=== PATIENT | male | born 1965 | race Two or more races ===

== ENCOUNTER 2025-01-08 11:44 | Inpatient (IN) | payer OTHER ==
[~2025-01-08] VITALS: Ht 170.2 cm; Wt 95.7 kg
--- NOTE | 2025-01-08 12:35 | ECG ---
[facility] Test Date: 2025-01-08 Test Time: 12:31:14 Pat Name: BEAU IRBY Department: ER Room: 0222T Gender: M Regulatory Affairs Specialist: ESSENCE : 1965 Requested By: OLGA PHAN Order Number: [id number] Reading MD: Aman Mills Measurements Intervals [place] Rate: 70 P: 57 NH: 159 QRS: 45 QRSD: 91 T: 59 QT: 387 QTc: 418 Interpretive Statements Sinus rhythm Borderline T wave abnormalities Electronically Signed On 01-09-2025 19:16:38 PDT by Aman Mills Please click the below link to view image of tracing.
[2025-01-08 12:56] VITALS: PULSE 75; RESP 18; O2SAT 97
--- NOTE | 2025-01-08 13:03 | DVH ---
EXAM: XY CHEST PORTABLE HISTORY: dizzy, cp COMPARISON: None TECHNIQUE: Portable AP view of the chest was performed. FINDINGS: No pneumothorax, consolidative infiltrates, or pulmonary edema. The heart is not enlarged. There is moderate thoracic degenerative disc disease. IMPRESSION: No acute intrathoracic process.
[2025-01-08 13:04] LABS: Chloride 105 mmol/L (98-107); Potassium 3.8 mmol/L (3.5-5.1); Sodium 140 mmol/L (136-145)
[2025-01-08 13:05] LABS: Anion Gap 10 (5-15); Carbon Dioxide 25 mmol/L (20-31)
[2025-01-08 13:06] LABS: Basophils # (auto) 0.1 10 ^3/uL (0-0.2); Eosinophils # (auto) 0.5 10 ^3/uL (0-0.8); Eosinophils % (auto) 7.4 % (0.0-7.0); Hemoglobin 16.5 g/dL (12.2-16.2); Lymphocytes # (auto) 2.3 10 ^3/uL (0.4-5.4); Lymphocytes % (auto) 31.9 % (10.0-50.0); Mean Corpuscular Hemoglobin 29.1 pg (28.0-32.0); Mean Corpuscular Hgb Conc. 34.4 g/dL (32.0-36.0); Mean Corpuscular Volume 84.6 fL (80.0-100.0); Monocytes # (auto) 0.6 10 ^3/uL (0-1.3); Monocytes % (auto) 8.1 % (0.0-12.0); Neutrophils # (auto) 3.6 10 ^3/uL (1.6-8.6); Neutrophils % (auto) 51.6 % (37.0-80.0); Nucleated Red Blood Cells % 0.3 %; Platelet Count (auto) 302 10^3/uL (140-450); Red Blood Cells 5.67 10^6/uL (4.0-5.20); Red Cell Distribution Width 13.6 % (11.8-14.3); White Blood Cell 7.1 10^3/uL (4.4-10.8)
[2025-01-08 13:07] LABS: Calcium 10.5 mg/dL (8.7-10.4)
--- NOTE | 2025-01-08 13:09 | DVH ---
EXAM: CT HEAD WITHOUT CONTRAST HISTORY: dizzy COMPARISON: None TECHNIQUE: Axial images of the head were obtained and reformatted in coronal and sagittal planes. All CT scans at this medical facility are performed using dose modulation techniques as appropriate t o a performed exam including the following: Automated exposure control was utilized; adjustment of th e MA and/or KV according to patient size; and use of iterative reconstruction technique. CT Dose: CTDI volume is 52.15 mGy. Dose-length product is 863.9 mGy*cm FINDINGS: There is no evidence of acute intracranial hemorrhage, mass, mass effect midline shift. There is no h ydrocephalus or extra-axial fluid collection. Anthony-white matter differentiation is maintained. The visualized paranasal sinuses and mastoid air cells are clear. The calvarium is intact. IMPRESSION: 1. No acute intracranial process. HS:Y
[2025-01-08 13:10] LABS: BUN/Creatinine Ratio 23.2 (10.0-20.0); Blood Urea Nitrogen 22 mg/dL (9-23); Glucose 100 mg/dL (74-106)
[2025-01-08] MEDS: SODIUM CHLORIDE 0.9% 1,000 ML IV ONE (13:16)
[2025-01-08 14:51] LABS: Urine Bacteria None Seen /hpf (None Seen)
[2025-01-08 15:04] LABS: Urine Blood Negative /uL (Negative); Urine Clarity Clear (Clear); Urine Color Light-Yellow (Yellow); Urine Protein, UAD Negative (Negative); Urine Specific Gravity 1.022 (1.001-1.035); Urine Squamous Epithelial Cell None Seen /hpf (<5); Urine Urobilinogen Normal (Negative); Urine WBC 1 /HPF (0-5)
--- NOTE | 2025-01-08 15:12 | ED.PDOC ---
History of Present Illness HPI Comments 59Y M with PMHx HTN and HLD presents to ED for chief complaint dizziness [id number] with intermittent chest pain. Pt describes the dizziness as being lightheaded. Dizziness is worsened when concentrating, speaking, and driving. Pt states he feels at times he might pass out. Episodes are sometimes accompanied by chest pain. Per pt, had similar episode years ago and was told he had HTN and HLD. Pt attempted to fix diet and stop drinking but has not felt relief from the symptoms. Next PCP appt is on 02/08/2025. No other symptoms reported. Chief Complaint: Dizziness Time Seen by MD: 14:30 Reviewed Notes: Nurses Notes, Medications, Allergies Allergies: Coded Allergies: NO KNOWN ALLERGIES (Unverified , 01/08/25) Information Source: Patient Mode of Arrival: Ambulatory Severity: Moderate Timing: Months Duration: Intermittent Prehospital treatment: None Past Medical History PAST MEDICAL HISTORY: High Lipids, HTN Surgical History: Denies all surgeries Family History Family History: Unknown Social History Smoker: Non-Smoker Alcohol: Denies ETOH Use Drugs: Denies Drug Use Lives In: Home Constitutional: denies: chills, diaphoresis, fatigue, fever, malaise, sweats, weakness, others EENTM: denies: blurred vision, double vision, ear bleeding, ear discharge, ear drainage, ear pain, ear ringing, eye pain, eye redness, hearing loss, mouth pain, mouth swelling, nasal discharge, nose bleeding, nose congestion, nose pain, photophobia, tearing, throat pain, throat swelling, voice changes, others Respiratory: denies: cough, hemoptysis, orthopnea, SOB at rest, shortness of breath, SOB with excertion, stridor, wheezing, others Cardiovascular: reports: chest pain; denies: dizzy spells, diaphoresis, Dyspnea on exertion, edema, irregular heart beat, left arm pain, lightheadedness, palpitations, PND, syncope, others Gastrointestinal: denies: abdomen distended, abdominal pain, blood streaked bowels, constipated, diarrhea, dysphagia, difficulty swallowing, hematemesis, melena, nausea, poor appetite, poor fluid intake, rectal bleeding, rectal pain, vomiting, others Neurological: reports: dizziness; denies: fainting, headache, left sided numbness, left sided weakness, numbness, paresthesia, pre-existing deficit, right sided numbness, right sided weakness, seizure, speech problems, tingling, tremors, weakness, others Musculoskeletal: denies: back pain, gout, joint pain, joint swelling, muscle pain, muscle stiffness, neck pain, others Integumetry: denies: bruises, change in color, change in hair/nails, dryness, laceration, lesions, lumps, rash, wounds, others Allergic/Immunocompromised: denies: Difficulty Healing, Frequent Infections, Hives, Itching, others Hematologic/Lymphatic: denies: anemia, blood clots, easy bleeding, easy bruising, swollen glands, others Endocrine: denies: excessive hunger, excessive sweating, excessive thirst, excessive urination, flushing, intolerance to cold, intolerance to heat, unexplained weight gain, unexplained weight loss, others Psychiatric: denies: anxiety, bipolar disorder, depression, hopeless, panic disorder, schizophrenia, sleepless, suicidal, others All Other Systems: Reviewed and Negative Physical Exam General Appearance: No Apparent Distress, Obese HEENT: PERRL/EOMI Neck: Full Range of Motion, Normal Inspection Respiratory: Lungs Clear, No Accessory Muscle Use, No Respiratory Distress, Normal Breath Sounds Cardiovascular: No Edema, No JVD, Regular Rate/Rhythm Breast Exam: Deferred Gastrointestinal: Non Tender, Soft Genitalia: Deferred Pelvic: Deferred Rectal: Deferred Extremities: Normal inspection, Normal range of motion, Non-tender, No pedal edema Neurologic: Alert (Oriented x4), Normal Affect, Normal Mood, Other (Ambulatory. No gross focal deficit.) Cerebellar Function: NOT DONE Reflexes: NOT DONE Skin: Dry, Normal Color, Warm Lymphatic: NOT DONE Was a procedure done? Was a procedure done?: No EKG EKG : Comments Sinus rhythm, rate 70, normal intervals, normal axis, normal QRS, nonspecific T changes. Differential Dx Considerations may include: vasovagal reaction, arrhythmia, ACS, LA, TIA, carotid insufficiency, intracranial mass lesion, hypovolemia/orthostasis, among others X-Ray, Labs, Meds, VS Vital Signs Date Time Temp Pulse Resp B/P (MAP) Pulse Ox O2 Delivery O2 Flow Rate FiO2 01/08/25 13:17 98.1 68 19 121/84 (96) 95 98.1 01/08/25 12:56 97.8 75 18 141/91 (108) 97 97.8 01/08/25 12:56 75 18 97 Room Air* 0 21 01/08/25 12:31 70 01/08/25 12:25 98.2 71 16 143/93 (110) 99 98.2 Lab Test 01/08/25 13:06 01/08/25 12:41 01/08/25 12:26 Range/Units Urine Color Light-yellow Yellow Urine Clarity Clear Clear Urine pH 6.0 5.0-9.0 Urine Specific [place] 1.022 1.001-1.035 Urine Protein Negative Negative Urine Ketones Negative Negative Urine Blood Negative Negative /uL Urine Nitrite Negative Negative Urine Bilirubin Negative Negative Urine Urobilinogen Normal Negative mg/dL Urine Leukocyte Esterase Negative Negative /uL Urine RBC 1 0 - 4 /hpf Urine Microscopic WBC 1 0-5 /HPF Urine Squamous Epithelial Cells None seen <5 /hpf Urine Bacteria None seen None Seen /hpf Urine Glucose Normal Normal mg/dL White Blood Count 7.1 4.4-10.8 10^3/uL Red Blood Count 5.67 H 4.0-5.20 10^6/uL Hemoglobin 16.5 H 12.2-16.2 g/dL Hematocrit 48.0 H 36.0-46.0 % Mean Corpuscular Volume 84.6 80.0-100.0 fL Mean Corpuscular Hemoglobin 29.1 28.0-32.0 pg Mean Corpuscular Hemoglobin Concent 34.4 32.0-36.0 g/dL Red Cell Distribution Width 13.6 11.8-14.3 % Platelet Count 302 140-450 10^3/uL Mean Platelet Volume 8.6 6.9-10.8 fL Neutrophils (%) (Auto) 51.6 37.0-80.0 % Lymphocytes (%) (Auto) 31.9 10.0-50.0 % Monocytes (%) (Auto) 8.1 0.0-12.0 % Eosinophils (%) (Auto) 7.4 H 0.0-7.0 % Basophils (%) (Auto) 1.0 0.0-2.0 % Neutrophils # (Auto) 3.6 1.6-8.6 10 ^3/uL Lymphocytes # (Auto) 2.3 0.4-5.4 10 ^3/uL Monocytes # (Auto) 0.6 0-1.3 10 ^3/uL Eosinophils # (Auto) 0.5 0-0.8 10 ^3/uL Basophils # (Auto) 0.1 0-0.2 10 ^3/uL Nucleated Red Blood Cells 0.3 % Sodium Level 140 136-145 mmol/L Potassium Level 3.8 3.5-5.1 mmol/L Chloride Level 105 98-107 mmol/L Carbon Dioxide Level 25 20-31 mmol/L Anion Gap 10 5-15 Blood Urea Nitrogen 22 9-23 mg/dL Creatinine 0.95 0.550-1.02 mg/dL Glomerular Filtration Rate Calc 69 >90 mL/min BUN/Creatinine Ratio 23.2 H 10.0-20.0 Serum Glucose 100 74-106 mg/dL Calcium Level 10.5 H 8.7-10.4 mg/dL Troponin I High Sensitivity 20 </=34 ng/L B-Type Natriuretic Peptide 11.76 0-100 pg/mL POC Glucose 107 H 70-106 mg/dl Current Medications Medications (Trade) Dose Ordered Sig/Nahed Route Start Time Stop Time Status Last Admin Sodium Chloride 1,000 ml @ 1,000 mls/hr Q1H ONCE IV 01/08/25 13:15 01/08/25 14:14 DC 01/08/25 13:16 PROCEDURE(s): CXRP - CHEST PORTABLE REASON: dizzy, cp ORDER NUMBER(s): [id number], ACCESSION NUMBER(s): [id number] EXAM: XY CHEST PORTABLE HISTORY: dizzy, cp COMPARISON: None TECHNIQUE: Portable AP view of the chest was performed. FINDINGS: No pneumothorax, consolidative infiltrates, or pulmonary edema. The heart is not enlarged. There is moderate thoracic degenerative disc disease. IMPRESSION: No acute intrathoracic process. EDURE(s): HWOCT - HEAD WITHOUT CONTRAST REASON: dizzy ORDER NUMBER(s): [id number], ACCESSION NUMBER(s): [id number] EXAM: CT HEAD WITHOUT CONTRAST HISTORY: dizzy COMPARISON: None TECHNIQUE: Axial images of the head were obtained and reformatted in coronal and sagittal planes. All CT scans at this medical facility are performed using dose modulation techniques as appropriate to a performed exam including the following: Automated exposure control was utilized; adjustment of the MA and/or KV according to patient size; and use of iterative reconstruction technique. CT Dose: CTDI volume is 52.15 mGy. Dose-length product is 863.9 mGy*cm FINDINGS: There is no evidence of acute intracranial hemorrhage, mass, mass effect midline shift. There is no hydrocephalus or extra-axial fluid collection. Anthony-white matter differentiation is maintained. The visualized paranasal sinuses and mastoid air cells are clear. The calvarium is intact. IMPRESSION: 1. No acute intracranial process. HS:Y X-Ray, Labs, Meds, VS Comment 59-year-old male with a history of hypertension and hyperlipidemia presenting with episodes of lightheadedness and near syncope associated with chest pain Vitals remarkable for BP 143/93 Exam unremarkable Rhythm strip independently interpreted by me: Sinus rhythm, rate 71, no ectopy. CT head unremarkable Chest x-ray unremarkable CBC, metabolic panel, UA, BNP and 2 serial troponins unremarkable for any abnormality of acute significance. Patient treated with the following in the ED: 1 L 0.9 normal saline IV bolus On re-evaluation, patient states he is still having symptoms lightheadedness, but no chest pain. Plan is to admit the patient for Cardiology and Neurology evaluation. Time of 1ST Reevaluation: 15:00 Reevaluation 1ST: Unchanged Time of 2ND Reevaluation: 15:59 Reevaluation 2ND: Unchanged Patient Education/Counseling: Diagnosis, Treatment Family Education/Counseling: No Family Present Departure 1 Departure Time of Disposition: 15:59 Impression: Primary Impression: Pre-syncope Additional Impression: Chest pain with high risk for cardiac etiology Disposition: 09 ADMITTED INPATIENT Admit to: [facility] Condition: Guarded Critical Care Note Critical Care Time?: No Stability Stability form required: No Heart Score Heart Score: Heart Score Response (Comments) Value History Slightly Suspicious 0 EKG Repolarization Disturb 1 Age 45-64 1 Risk Factors 1 or 2 risk factors 1 Troponin Normal limit 0 Total 3 I personally scribed for DEBRA MERCADO MD ([email or web address]) on 01/08/25 at 15:12. Electronically submitted by Alice Cook ([email or web address]). I personally scribed for DEBRA MERCADO MD ([email or web address]) on 01/08/25 at 16:34. Electronically submitted by Alice Cook ([facility]). DEBRA MERCADO MD Jan 08, 2025 15:12
[2025-01-08 19:58] VITALS: PULSE 65; RESP 14; O2SAT 94
[2025-01-08] MEDS ORDERED: hydrALAZINE HCL 20 MG/ML VL IV PRN (20:00)
[2025-01-08] MEDS ORDERED: ONDANSETRON HCL 4 MG/2 ML VIAL IV PRN ×2 (20:00→20:30)
[2025-01-08] MEDS ORDERED: ACETAMINOPHEN 325 MG TAB PO PRN ×2 (20:00→20:30)
[2025-01-08] MEDS ORDERED: DOCUSATE SOD 100 MG CAP PO PRN ×2 (20:00→20:30)
[2025-01-08] MEDS ORDERED: HYDROcodone-ACET 5/325MG TAB PO PRN ×2 (20:00→20:30)
[2025-01-08] MEDS ORDERED: NITROGLYCERIN 0.4 MG SL TAB SL PRN (20:30)
[2025-01-08] MEDS ORDERED: MORPHINE SULFATE INJ 2 MG/ml SYRG IV PRN (20:30)
[2025-01-08] MEDS ORDERED: HYDROmorphone HCL 2 MG/ML VL/or syr IV PRN (20:30)
--- NOTE | 2025-01-08 21:06 | DVHHP2 ---
Admitting Diagnosis: Dizziness History of Present Illness 59Y M with PMHx HTN and HLD presents to ED for chief complaint dizziness [id number] with intermittent chest pain. Pt describes the dizziness as being lightheaded. Dizziness is worsened when concentrating, speaking, and driving. Pt states he feels at times he might pass out. Episodes are sometimes accompanied by chest pain. Per pt, had similar episode years ago and was told he had HTN and HLD. Pt attempted to fix diet and stop drinking but has not felt relief from the symptoms. Next PCP appt is on 02/08/2025. No other symptoms reported. PAST MEDICAL HISTORY: High Lipids, HTN Surgical History: Denies all surgeries Family History Family History: Unknown Social History Smoker: Non-Smoker Alcohol: Denies ETOH Use Drugs: Denies Drug Use Lives In: Home Allergies: Coded Allergies: NO KNOWN ALLERGIES (Unverified , 01/08/25) Current Medications Current Medications Medications (Trade) Dose Ordered Sig/Nahed Route PRN Reason Start Time Stop Time Status Last Admin Sodium Chloride (Saline Lock Ns) 10 ml Q8HR IV 01/08/25 22:00 UNV Acetaminophen/ Hydrocodone Bitart ([place] 5/325MG Tab) 1 tab Q4HP PRN PO MODERATE PAIN (4-6 PAIN SCALE) 01/08/25 20:00 UNV Ondansetron HCl (Zofran) 4 mg Q4HP PRN IV NAUSEA / VOMITING 01/08/25 20:00 UNV Docusate Sodium (Colace Capsule) 100 mg BIDPRN PRN PO FOR CONSTIPATION 01/08/25 20:00 UNV Acetaminophen (Tylenol Tablet) 650 mg Q6HP PRN PO PAIN SCALE 1-3 OR TEMP>100.4 01/08/25 20:00 UNV Hydralazine HCl (Apresoline Injection) 10 mg Q6HP PRN IV SBP>150 01/08/25 20:00 UNV Gemfibrozil (Lopid Tablet) 600 mg DAILY PO 01/09/25 10:00 UNV Sodium Chloride (Saline Lock Ns) 10 ml Q8HR IV 01/08/25 22:00 UNV Docusate Sodium (Colace Capsule) 100 mg BIDPRN PRN PO FOR CONSTIPATION 01/08/25 20:30 UNV Acetaminophen (Tylenol Tablet) 650 mg Q6HP PRN PO PAIN SCALE 1-3 OR TEMP>100.4 01/08/25 20:30 UNV Acetaminophen/ Hydrocodone Bitart ([place] 5/325MG Tab) 1 tab Q4HP PRN PO MODERATE PAIN (4-6 PAIN SCALE) 01/08/25 20:30 UNV Hydromorphone HCl (Dilaudid Injection) 0.5 mg Q4HP PRN IV SEVERE PAIN (7-10 PAIN SCALE) 01/08/25 20:30 UNV Ondansetron HCl (Zofran) 4 mg Q4HP PRN IV NAUSEA / VOMITING 01/08/25 20:30 UNV Enoxaparin Sodium (Lovenox) 40 mg DAILY SC 01/09/25 10:00 UNV Nitroglycerin (Ntrostat Sublingual) 0.4 mg Q5MINP PRN SL FOR CHEST PAIN 01/08/25 20:30 UNV Morphine Sulfate 2 mg Q30M PRN IV FOR CHEST PAIN 01/08/25 20:30 UNV Vital Signs Vital Signs Date Time Temp Pulse Resp B/P (MAP) Pulse Ox O2 Delivery O2 Flow Rate FiO2 01/08/25 19:58 65 14 94 Room Air* 0 21 01/08/25 19:33 98.6 147/96 (113) 98.6 Physical Exam 69 years old male, well nourished well developed. Mild distress HEENT-atraumatic normocephalic Heart-regular rate and rhythm Lungs clear to auscultate bilaterally Abdomen soft nontender nondistended Musculoskeletal-no edema cyanosis Neuro-AO x3, no focal deficits Results Labs Test 01/08/25 13:06 01/08/25 12:41 01/08/25 12:26 Range/Units Urine Color Light-yellow Yellow Urine Clarity Clear Clear Urine pH 6.0 5.0-9.0 Urine Specific [place] 1.022 1.001-1.035 Urine Protein Negative Negative Urine Ketones Negative Negative Urine Blood Negative Negative /uL Urine Nitrite Negative Negative Urine Bilirubin Negative Negative Urine Urobilinogen Normal Negative mg/dL Urine Leukocyte Esterase Negative Negative /uL Urine RBC 1 0 - 4 /hpf Urine Microscopic WBC 1 0-5 /HPF Urine Squamous Epithelial Cells None seen <5 /hpf Urine Bacteria None seen None Seen /hpf Urine Glucose Normal Normal mg/dL White Blood Count 7.1 4.4-10.8 10^3/uL Red Blood Count 5.67 H 4.0-5.20 10^6/uL Hemoglobin 16.5 H 12.2-16.2 g/dL Hematocrit 48.0 H 36.0-46.0 % Mean Corpuscular Volume 84.6 80.0-100.0 fL Mean Corpuscular Hemoglobin 29.1 28.0-32.0 pg Mean Corpuscular Hemoglobin Concent 34.4 32.0-36.0 g/dL Red Cell Distribution Width 13.6 11.8-14.3 % Platelet Count 302 140-450 10^3/uL Mean Platelet Volume 8.6 6.9-10.8 fL Neutrophils (%) (Auto) 51.6 37.0-80.0 % Lymphocytes (%) (Auto) 31.9 10.0-50.0 % Monocytes (%) (Auto) 8.1 0.0-12.0 % Eosinophils (%) (Auto) 7.4 H 0.0-7.0 % Basophils (%) (Auto) 1.0 0.0-2.0 % Neutrophils # (Auto) 3.6 1.6-8.6 10 ^3/uL Lymphocytes # (Auto) 2.3 0.4-5.4 10 ^3/uL Monocytes # (Auto) 0.6 0-1.3 10 ^3/uL Eosinophils # (Auto) 0.5 0-0.8 10 ^3/uL Basophils # (Auto) 0.1 0-0.2 10 ^3/uL Nucleated Red Blood Cells 0.3 % Sodium Level 140 136-145 mmol/L Potassium Level 3.8 3.5-5.1 mmol/L Chloride Level 105 98-107 mmol/L Carbon Dioxide Level 25 20-31 mmol/L Anion Gap 10 5-15 Blood Urea Nitrogen 22 9-23 mg/dL Creatinine 0.95 0.550-1.02 mg/dL Glomerular Filtration Rate Calc 69 >90 mL/min BUN/Creatinine Ratio 23.2 H 10.0-20.0 Serum Glucose 100 74-106 mg/dL Calcium Level 10.5 H 8.7-10.4 mg/dL Troponin I High Sensitivity 20 </=34 ng/L B-Type Natriuretic Peptide 11.76 0-100 pg/mL POC Glucose 107 H 70-106 mg/dl Primary Diagnosis presyncope hypertensive urgency Plan resume lisinopril 20mg daily start amlodipine 2.5mg hydralazine 10mg ivp prb SBP > 165 Check echo for structure heart disease IVF monitor chest pain full code cardiac diet lovenox pepcid for gi pxx Plan discussed with: Patient Problems List: (1) Chest pain with high risk for cardiac etiology Status: Acute (2) Pre-syncope Status: Acute Date of Service: Jan 08, 2025 Billing Provider: NIESHA STEIN MD Common Visit Codes: [id number] INP/OBS CARE (MOD) NIESHA STEIN MD Jan 08, 2025 21:06
[2025-01-08 21:07] VITALS: BP 146/90; PULSE 68; RESP 18; TEMP 97.5; O2SAT 96
[2025-01-08] MEDS ORDERED: SODIUM CHLOR 0.9% PF (SALINE LOCK) 10ML VIAL/SYR IV SCH (22:00)
[2025-01-08] MEDS: SODIUM CHLOR 0.9% PF (SALINE LOCK) 10ML VIAL/SYR IV SCH (22:00)
[2025-01-08 22:05] VITALS: BP 126/70; PULSE 60; RESP 15; TEMP 98; O2SAT 96
[2025-01-08] MEDS ORDERED: GEMF-66 PO (22:33)
[2025-01-08] MEDS ORDERED: POTA-36 PO (22:33)
[2025-01-08] MEDS ORDERED: LISI20TA60 PO (22:33)
[2025-01-09] VITALS (10 sets, daily range): BP systolic 110–144; BP diastolic 71–93; PULSE 57–71; RESP 15–18; TEMP 97.5–98.4; O2SAT 95–100
[2025-01-09 07:04] LABS: Basophils # (auto) 0.1 10 ^3/uL (0-0.2); Basophils % (auto) 0.9 % (0.0-2.0); Eosinophils # (auto) 0.7 10 ^3/uL (0-0.8); Eosinophils % (auto) 8.9 % (0.0-7.0); Hematocrit 44.2 % (41.0-53.0); Hemoglobin 15.4 g/dL (13.5-17.5); Lymphocytes # (auto) 2.6 10 ^3/uL (0.4-5.4); Lymphocytes % (auto) 33.9 % (10.0-50.0); Mean Corpuscular Hemoglobin 29.4 pg (28.0-32.0); Mean Corpuscular Hgb Conc. 34.9 g/dL (32.0-36.0); Mean Corpuscular Volume 84.2 fL (80.0-100.0); Monocytes # (auto) 0.5 10 ^3/uL (0-1.3); Monocytes % (auto) 6.9 % (0.0-12.0); Neutrophils # (auto) 3.8 10 ^3/uL (1.6-8.6); Neutrophils % (auto) 49.4 % (37.0-80.0); Nucleated Red Blood Cells % 0.1 %; Platelet Count (auto) 274 10^3/uL (140-450); Red Blood Cells 5.25 10^6/uL (4.5-5.90); Red Cell Distribution Width 13.8 % (11.8-14.3); White Blood Cell 7.6 10^3/uL (4.4-10.8)
[2025-01-09 07:40] LABS: Alanine Aminotransferase 24 U/L (7-40); Alkaline Phosphatase 79 U/L (46-116); Anion Gap 9 (5-15); BUN/Creatinine Ratio 15.6 (10.0-20.0); Blood Urea Nitrogen 15 mg/dL (9-23); Carbon Dioxide 26 mmol/L (20-31); Chloride 103 mmol/L (98-107); Potassium 3.8 mmol/L (3.5-5.1); Sodium 138 mmol/L (136-145); Total Protein 7.9 g/dL (5.7-8.2)
[2025-01-09 07:54] LABS: Aspartate Aminotransferase 12 U/L (13-40); Glucose 110 mg/dL (74-106)
[2025-01-09 07:55] LABS: Albumin 5.1 g/dL (3.2-4.8); Bilirubin, Total 1.3 mg/dL (0.2-1.0)
[2025-01-09] MEDS: GEMFIBROZIL 600 MG TAB PO SCH (09:01)
[2025-01-09] MEDS: FAMOTIDINE 20 MG TAB PO SCH (09:01)
[2025-01-09] MEDS: LISINOPRIL 20 MG TAB PO SCH (09:02)
[2025-01-09] MEDS: ENOXAPARIN SOD 40 MG/0.4 ML SYRINGE SC SCH (09:04)
--- NOTE | 2025-01-09 13:01 | DVHPN2 ---
Reviewed: Care Plan, H&P, Labs, Medications, Previous Orders, Radiology Changes from previous H/P or p: No Changes Objective Vitals Vital Signs Date Time Temp Pulse Resp B/P (MAP) Pulse Ox O2 Delivery O2 Flow Rate FiO2 01/09/25 09:02 144/79 01/09/25 09:00 97.6 58 16 97 97.6 01/08/25 22:05 Room Air* 0 21 Intake/Output Intake and Output 01/09/25 07:00 Intake Total 1600 ml Balance 1600 ml Intake Oral 600 ml IV Total 1000 ml # Voids 2 Medications Current Medications Medications Dose Ordered Sig/Nahed Route Start Time Stop Time Status Last Admin Dose Admin Hydralazine HCl 10 mg Q6HP PRN IV 01/08/25 20:00 Gemfibrozil 600 mg DAILY PO 01/09/25 10:00 01/09/25 09:01 600 MG Sodium Chloride 10 ml Q8HR IV 01/08/25 22:00 01/09/25 06:00 10 ML Docusate Sodium 100 mg BIDPRN PRN PO 01/08/25 20:30 Acetaminophen 650 mg Q6HP PRN PO 01/08/25 20:30 Acetaminophen/ Hydrocodone Bitart 1 tab Q4HP PRN PO 01/08/25 20:30 Hydromorphone HCl 0.5 mg Q4HP PRN IV 01/08/25 20:30 Ondansetron HCl 4 mg Q4HP PRN IV 01/08/25 20:30 Enoxaparin Sodium 40 mg DAILY SC 01/09/25 10:00 01/09/25 09:04 40 MG Nitroglycerin 0.4 mg Q5MINP PRN SL 01/08/25 20:30 Morphine Sulfate 2 mg Q30M PRN IV 01/08/25 20:30 Lisinopril 20 mg DAILY PO 01/09/25 10:00 01/09/25 09:02 20 MG Famotidine 20 mg DAILY PO 01/09/25 10:00 01/09/25 09:01 20 MG Laboratory Results Laboratory Tests 01/09/25 06:28 Chemistry Test 01/09/25 06:28 Albumin 5.1 g/dL (3.2-4.8) H Calcium Level 10.0 mg/dL (8.7-10.4) Total Protein 7.9 g/dL (5.7-8.2) LFT Test 01/09/25 06:28 Alanine Aminotransferase (ALT) 24 U/L (7-40) Alkaline Phosphatase 79 U/L (46-116) Aspartate Amino Transferase (AST) 12 U/L (13-40) L Total Bilirubin 1.3 mg/dL (0.2-1.0) H Urinalysis Test 01/08/25 13:06 Urine Color Light-yellow (Yellow) Urine Clarity Clear (Clear) Urine pH 6.0 (5.0-9.0) Urine Specific [place] 1.022 (1.001-1.035) Urine Protein Negative (Negative) Urine Ketones Negative (Negative) Urine Blood Negative /uL (Negative) Urine Nitrite Negative (Negative) Urine Bilirubin Negative (Negative) Urine Urobilinogen Normal mg/dL (Negative) Urine Leukocyte Esterase Negative /uL (Negative) Urine RBC 1 /hpf (0 - 4) Urine Microscopic WBC 1 /HPF (0-5) Urine Squamous Epithelial Cells None seen /hpf (<5) Urine Bacteria None seen /hpf (None Seen) Urine Glucose Normal mg/dL (Normal) Labs and/or images reviewed: Labs reviewed by me, Image(s) reviewed by me Assessment/Plan Assessment/Plan Dizziness and chest pain one month: CT head negative carotid ultrasound pending echocardiogram result pending, cardiology consult for Dr. Junior Cook Neurology consult for Dr. Bull History of heavy alcohol use quit three weeks ago Hypotension Hypercholesterolemia Time spent 35 minutes Will check urine drug screen Plan discussed with: Patient My Orders Orders - KARLY DUTTA MD Procedure Category Date Status Time Carotid Duplx W Color US 01/09/25 Logged DOP 12:54 * Cardiology Consult CONS 01/09/25 Verified 12:54 Date of Service: Jan 09, 2025 Billing Provider: KARLY DUTTA MD Common Visit Codes: [id number] INP/OBS CARE(HIGH) KARLY DUTTA MD Jan 09, 2025 13:01
--- NOTE | 2025-01-09 13:41 | DVH ---
CAROTID DOPPLER ULTRASOUND HISTORY: Dizziness COMPARISON: None TECHNIQUE: Real time koch scale, color Doppler, and spectral duplex images are obtained through the c arotid and vertebral arteries. Findings: Peak systolic velocity right internal carotid artery is 66 cm/s and right common carotid artery is 61 cm/s. Ratio is 1.1. Antegrade flow noted in right vertebral artery. No ssignificant atherosclerotic plaque noted within the right carotid arterial system. Peak systolic velocity left internal carotid artery is 96 cm/s and left common carotid artery is 71 c m/s. Ratio is 1.3. Antegrade flow noted in left vertebral artery. No significant atherosclerotic plaq ue noted within the left carotid arterial system. Per the roll on man, the distal ICA is "kinked." Impression: 1. No evidence of hemodynamically significant stenosis within the bilateral carotid arterial systems. 2. Antegrade flow within bilateral vertebral arteries.
[2025-01-09 13:57] LABS: LDL Cholesterol 152 mg/dL (< 100); Triglycerides 181 mg/dL (< 150)
[2025-01-09 14:01] LABS: Cholesterol 207 mg/dL (< 200); HDL Cholesterol 32 mg/dL (40-59)
--- NOTE | 2025-01-09 15:24 | DVHINCON2 ---
Date of service: Jan 09, [address] Kay Reason for Consultation Dizziness one month History of Present Illness Mr. Noyola is a 49 years old not sure left-handed gentleman with a history of hypertension, dyslipidemia, obesity, he came to the [facility] on 01/08/2025 with a chief complaint of dizziness. At this time, he is alert and fully oriented, he provided the following history For about one month, the patient was has constant dizziness/lightheadedness/slight imbalance, along with mild chest pain when he was sitting, standing, walking, and the only time he was symptom-free is bad resting, there was associated blurry vision, but no nausea, vomiting, increased sweating. He has not had passing out He was chronic loud snoring, about four nights weekly, recently he was awakened by his snoring, and he was had waking up a few times choking/gasping. His sleep is not always refreshing, and he sometimes has fatigue and sleepiness during the daytime In the evening, he has a discomfort all over his body with the urge to move, and he keeps moving in the bed, a result he can not fall asleep easily. He claimes he is asymptomatic during the daytime but he was reports difficulty with long- distance travel. He denies a history of anemia or iron deficiency He reports he is a person on the age all the time, easily distressed out and he worries excessively, he sometimes feels muscle tightening up in the shoulders, neck and face, he thinks anxiety runs in his family Urinalysis, 01/08/2025: Unremarkable CBC, 01/09/2025: Unremarkable TBI/AST/ALT/AP, 01/09/2025 1.3//24/79 TG/HDL/LDL/HDL, 01/09/2025: 181/207/152/32 TSH, 01/10/2020 5:2.44 Carotid Doppler, 01/09/2025: 1. No evidence of hemodynamically significant stenosis within the bilateral carotid arterial systems. 2. Antegrade flow within bilateral vertebral arteries CT head, 01/08/2025: No acute intracranial process. Past Medical History Hypertension, dyslipidemia, obesity Past Surgical History None Family History: Patient reports no known family medical history. Family History Hypertension, anxiety Social History He has not history of tobacco smoker, he denies a history of alcohol or substance abuse He maintains and cleans swimming pool Allergies: Coded Allergies: NO KNOWN ALLERGIES (Unverified , 01/08/25) Home Meds Reported Medications Lisinopril & Hydrochlorothiazi (Zestoretic) 1 Tab Tab, 1 TAB PO DAILY, #30 TAB 5 Refills 01/08/25 Potassium Chloride (POTASSIUM CHLORIDE CR) 10 Meq Tb, 1 TAB PO DAILY, #30 TAB 5 Refills 01/08/25 Gemfibrozil (Gemfibrozil) 600 Mg Tab, 1 TAB PO BID 01/08/25 Current Medications Current Medications Medications (Trade) Dose Ordered Sig/Nahed Route PRN Reason Start Time Stop Time Status Last Admin Sodium Chloride (Saline Lock Ns) 10 ml Q8HR IV 01/08/25 22:00 01/08/25 21:44 DC Acetaminophen/ Hydrocodone Bitart ([place] 5/325MG Tab) 1 tab Q4HP PRN PO MODERATE PAIN (4-6 PAIN SCALE) 01/08/25 20:00 01/08/25 21:44 DC Ondansetron HCl (Zofran) 4 mg Q4HP PRN IV NAUSEA / VOMITING 01/08/25 20:00 01/08/25 21:44 DC Docusate Sodium (Colace Capsule) 100 mg BIDPRN PRN PO FOR CONSTIPATION 01/08/25 20:00 01/08/25 21:44 DC Acetaminophen (Tylenol Tablet) 650 mg Q6HP PRN PO PAIN SCALE 1-3 OR TEMP>100.4 01/08/25 20:00 01/08/25 21:44 DC Hydralazine HCl (Apresoline Injection) 10 mg Q6HP PRN IV SBP>150 01/08/25 20:00 Gemfibrozil (Lopid Tablet) 600 mg DAILY PO 01/09/25 10:00 01/09/25 09:01 Sodium Chloride (Saline Lock Ns) 10 ml Q8HR IV 01/08/25 22:00 01/09/25 06:00 Docusate Sodium (Colace Capsule) 100 mg BIDPRN PRN PO FOR CONSTIPATION 01/08/25 20:30 Acetaminophen (Tylenol Tablet) 650 mg Q6HP PRN PO PAIN SCALE 1-3 OR TEMP>100.4 01/08/25 20:30 Acetaminophen/ Hydrocodone Bitart ([place] 5/325MG Tab) 1 tab Q4HP PRN PO MODERATE PAIN (4-6 PAIN SCALE) 01/08/25 20:30 Hydromorphone HCl (Dilaudid Injection) 0.5 mg Q4HP PRN IV SEVERE PAIN (7-10 PAIN SCALE) 01/08/25 20:30 Ondansetron HCl (Zofran) 4 mg Q4HP PRN IV NAUSEA / VOMITING 01/08/25 20:30 Enoxaparin Sodium (Lovenox) 40 mg DAILY SC 01/09/25 10:00 01/09/25 09:04 Nitroglycerin (Ntrostat Sublingual) 0.4 mg Q5MINP PRN SL FOR CHEST PAIN 01/08/25 20:30 Morphine Sulfate 2 mg Q30M PRN IV FOR CHEST PAIN 01/08/25 20:30 Lisinopril (Zestril Tablet) 20 mg DAILY PO 01/09/25 10:00 01/09/25 09:02 Famotidine (Pepcid Tablet) 20 mg DAILY PO 01/09/25 10:00 01/09/25 09:01 Review of Systems As above, the other systems are negative Vital Signs Vital Signs Date Time Temp Pulse Resp B/P (MAP) Pulse Ox O2 Delivery O2 Flow Rate FiO2 01/09/25 13:00 98.4 62 15 140/93 (109) 99 98.4 01/08/25 22:05 Room Air* 0 21 Physical Exam GENERAL EXAM: General: the patient is well developed and nourished. No acute distress. HEENT: Normocephalic, neck is supple, no carotid bruits. No mass. The throat is Mallampati grade III-IV RESPIRATORY: Normal respiratory effort with symmetrical lung expansion. Lungs clear to auscultation. CARDIOVASCULAR: Regular rate and rhythm with no murmurs. S1, S2. ABDOMEN: Soft, nontender, normal bowel sound NEUROLOGICAL: MENTAL STATUS: Awake and alert. Oriented to person, place, time and general circumstances. Able to give personal history SPEECH, LANGUAGE, HIGHER CORTICAL FUNCTION: no aphasia or dysathria. CRANIAL NERVES: #2: Intact visual brian to confrontation. The optic discs were sharp #3,4,6: Pupils are equal, round and reactive. EOMs full and conjugate. No nystagmus. #5: Facial sensation intact in all three divisions bilaterally. Mandibular strength intact. #7: Facial muscles symmetrical and strength intact. #8: Hearing grossly normal to voice. #9,10: Uvula and soft palate rise in the midline. Swallow and voice are normal. #11: Trapezius and sternomastoid strength intact bilaterally. #12: Tongue midline. No fasciculations or atrophy. SENSATION: Sensation to touch and pinprick is normal. MOTOR: Normal tone in the upper and lower extremity. Normal muscle bulk. No fasciculations. No abnormal movements or posturing. Muscle strength of the major groups in the upper extremities is 5/5. Muscle strength of the major groups in the lower extremities is 5/5. REFLEXES: Deep tendon reflexes are symmetrical. No pathological reflexes. CEREBELLAR/COORDINATION: Finger to nose and heel to jacobo are normal bilaterally. GAIT/STATION: deferred. Labs/Diagnostic Data Labs Test 01/09/25 06:28 01/08/25 13:06 01/08/25 12:41 01/08/25 12:26 Range/Units White Blood Count 7.6 4.4-10.8 10^3/uL Red Blood Count 5.25 4.5-5.90 10^6/uL Hemoglobin 15.4 13.5-17.5 g/dL Hematocrit 44.2 41.0-53.0 % Mean Corpuscular Volume 84.2 80.0-100.0 fL Mean Corpuscular Hemoglobin 29.4 28.0-32.0 pg Mean Corpuscular Hemoglobin Concent 34.9 32.0-36.0 g/dL Red Cell Distribution Width 13.8 11.8-14.3 % Platelet Count 274 140-450 10^3/uL Mean Platelet Volume 8.5 6.9-10.8 fL Neutrophils (%) (Auto) 49.4 37.0-80.0 % Lymphocytes (%) (Auto) 33.9 10.0-50.0 % Monocytes (%) (Auto) 6.9 0.0-12.0 % Eosinophils (%) (Auto) 8.9 H 0.0-7.0 % Basophils (%) (Auto) 0.9 0.0-2.0 % Neutrophils # (Auto) 3.8 1.6-8.6 10 ^3/uL Lymphocytes # (Auto) 2.6 0.4-5.4 10 ^3/uL Monocytes # (Auto) 0.5 0-1.3 10 ^3/uL Eosinophils # (Auto) 0.7 0-0.8 10 ^3/uL Basophils # (Auto) 0.1 0-0.2 10 ^3/uL Nucleated Red Blood Cells 0.1 % Sodium Level 138 136-145 mmol/L Potassium Level 3.8 3.5-5.1 mmol/L Chloride Level 103 98-107 mmol/L Carbon Dioxide Level 26 20-31 mmol/L Anion Gap 9 5-15 Blood Urea Nitrogen 15 9-23 mg/dL Creatinine 0.96 0.700-1.30 mg/dL Glomerular Filtration Rate Calc 92 >90 mL/min BUN/Creatinine Ratio 15.6 10.0-20.0 Serum Glucose 110 H 74-106 mg/dL Calcium Level 10.0 8.7-10.4 mg/dL Total Bilirubin 1.3 H 0.2-1.0 mg/dL Aspartate Amino Transferase (AST) 12 L 13-40 U/L Alanine Aminotransferase (ALT) 24 7-40 U/L Alkaline Phosphatase 79 46-116 U/L Total Protein 7.9 5.7-8.2 g/dL Albumin 5.1 H 3.2-4.8 g/dL Triglycerides Level 181 H < 150 mg/dL Cholesterol Level 207 H < 200 mg/dL LDL Cholesterol 152 H < 100 mg/dL HDL Cholesterol 32 L 40-59 mg/dL Thyroid Stimulating Hormone (TSH) 2.44 0.55-4.78 uIU/mL Urine Color Light-yellow Yellow Urine Clarity Clear Clear Urine pH 6.0 5.0-9.0 Urine Specific [place] 1.022 1.001-1.035 Urine Protein Negative Negative Urine Ketones Negative Negative Urine Blood Negative Negative /uL Urine Nitrite Negative Negative Urine Bilirubin Negative Negative Urine Urobilinogen Normal Negative mg/dL Urine Leukocyte Esterase Negative Negative /uL Urine RBC 1 0 - 4 /hpf Urine Microscopic WBC 1 0-5 /HPF Urine Squamous Epithelial Cells None seen <5 /hpf Urine Bacteria None seen None Seen /hpf Urine Glucose Normal Normal mg/dL Troponin I High Sensitivity 20 </=34 ng/L B-Type Natriuretic Peptide 11.76 0-100 pg/mL POC Glucose 107 H 70-106 mg/dl Assessment Dizziness/lightheadedness/imbalance with mild chest pain, etiology unclear Sleep-related breathing disorder Obesity Insomnia Fatigue Restless leg syndrome Iron deficiency Rule out anxiety Plan/Recommendation Monitoring Supportive treatment Telemetry Orthostatic vitals Iron profile, ferritin MRI brain A trial of pramipexole 0.25 mg 2-3 hours before bedtime in the evening A trial of APAP in the hospital Weight control Sleep hygiene tips discussed Hypersomnia precautions discussed Address possible anxiety later Cardiology consultation More recommendation per clinical course This is a long and complicated consultation This medical document was created using an electronic medical record system with [employer] dictation system. Although this document has been carefully reviewed, there may still be some phonetic and typographical errors. These areas are purely typographical due to imperfections of the software programs, an d do not reflect any compromise in the patient's medical care. Plan discussed with: Patient, Other PASQUALE MAJOR MD Jan 09, 2025 15:24
--- NOTE | 2025-01-09 15:41 | DVHINCON2 ---
Date Seen: Jan 09, 2025 Referring Physician Nelson Kay Reason for Consultation Dizziness, Chest Pain History of Present Illness 51-year-old male with PMH for prediabetes, HLD, HTN presents to the hospital with dizziness chest pain. Patient states it started with dizziness, has been going on for the last week. Patient has also been having some visual changes as well with the dizziness. Denies any other neurological deficits no weakness no facial or extremity numbness. Patient does use Q-tips often and notes that he did pull his left inner ear around the same time the dizziness started. Patient states that symptoms or syncope but he also has episodes of chest pain noted to be left-sided, nonradiating, nonexertional, was worse when he was laying flat. Last episode described as sudden when he was laying flat in his bed though when he got up and started walking it started to subside. Denies previous cardiac workup. Upon evaluation in the ER CT head, carotid ultrasound negative. Troponins negative. Cholesterol 207, LDL 152 HDL 32. Denies illicit drug use or tobacco use. States he quit drinking approximately 3 weeks ago. EKG reviewed and shows normal sinus rhythm at 70 beats per minute, no significant ST and T-wave abnormality. Past Medical History HTN, HLD, prediabetes Past Surgical History Denies previous cardiac surgeries Family History: Patient reports no known family medical history. Family History Denies pertinent family cardiac history Social History Denies tobacco, or illicit drug use. Patient used to drink occasional alcohol though quit 3 weeks ago. Allergies: Coded Allergies: NO KNOWN ALLERGIES (Unverified , 01/08/25) Home Meds Reported Medications Lisinopril & Hydrochlorothiazi (Zestoretic) 1 Tab Tab, 1 TAB PO DAILY, #30 TAB 5 Refills 01/08/25 Potassium Chloride (POTASSIUM CHLORIDE CR) 10 Meq Tb, 1 TAB PO DAILY, #30 TAB 5 Refills 01/08/25 Gemfibrozil (Gemfibrozil) 600 Mg Tab, 1 TAB PO BID 01/08/25 Current Medications Current Medications Medications (Trade) Dose Ordered Sig/Nahed Route PRN Reason Start Time Stop Time Status Last Admin Sodium Chloride (Saline Lock Ns) 10 ml Q8HR IV 01/08/25 22:00 01/08/25 21:44 DC Acetaminophen/ Hydrocodone Bitart ([place] 5/325MG Tab) 1 tab Q4HP PRN PO MODERATE PAIN (4-6 PAIN SCALE) 01/08/25 20:00 01/08/25 21:44 DC Ondansetron HCl (Zofran) 4 mg Q4HP PRN IV NAUSEA / VOMITING 01/08/25 20:00 01/08/25 21:44 DC Docusate Sodium (Colace Capsule) 100 mg BIDPRN PRN PO FOR CONSTIPATION 01/08/25 20:00 01/08/25 21:44 DC Acetaminophen (Tylenol Tablet) 650 mg Q6HP PRN PO PAIN SCALE 1-3 OR TEMP>100.4 01/08/25 20:00 01/08/25 21:44 DC Hydralazine HCl (Apresoline Injection) 10 mg Q6HP PRN IV SBP>150 01/08/25 20:00 Gemfibrozil (Lopid Tablet) 600 mg DAILY PO 01/09/25 10:00 01/09/25 09:01 Sodium Chloride (Saline Lock Ns) 10 ml Q8HR IV 01/08/25 22:00 01/09/25 06:00 Docusate Sodium (Colace Capsule) 100 mg BIDPRN PRN PO FOR CONSTIPATION 01/08/25 20:30 Acetaminophen (Tylenol Tablet) 650 mg Q6HP PRN PO PAIN SCALE 1-3 OR TEMP>100.4 01/08/25 20:30 Acetaminophen/ Hydrocodone Bitart ([place] 5/325MG Tab) 1 tab Q4HP PRN PO MODERATE PAIN (4-6 PAIN SCALE) 01/08/25 20:30 Hydromorphone HCl (Dilaudid Injection) 0.5 mg Q4HP PRN IV SEVERE PAIN (7-10 PAIN SCALE) 01/08/25 20:30 Ondansetron HCl (Zofran) 4 mg Q4HP PRN IV NAUSEA / VOMITING 01/08/25 20:30 Enoxaparin Sodium (Lovenox) 40 mg DAILY SC 01/09/25 10:00 01/09/25 09:04 Nitroglycerin (Ntrostat Sublingual) 0.4 mg Q5MINP PRN SL FOR CHEST PAIN 01/08/25 20:30 Morphine Sulfate 2 mg Q30M PRN IV FOR CHEST PAIN 01/08/25 20:30 Lisinopril (Zestril Tablet) 20 mg DAILY PO 01/09/25 10:00 01/09/25 09:02 Famotidine (Pepcid Tablet) 20 mg DAILY PO 01/09/25 10:00 01/09/25 09:01 Review of Systems Constitutional: No: Fever, Chills, Sweats, Weakness, Malaise, Other Eyes: No: Pain, Vision change, Conjunctivae inflammation, Eyelid inflammation, Other, Redness ENT: No: Ear pain, Ear discharge, Nose pain, Nose discharge, Nose congestion, Mouth pain, Mouth swelling, Throat pain, Throat swelling, Other Respiratory: No: Cough, Dry, Shortness of breath, SOB with exertion, Wheezing, Hemoptysis, Pleuritic Pain, Sputum, Wheezing, Other Cardiovascular: ; No: Palpitations, Orthopnea, Paroxysmal Noc. Dyspnea, Edema, Lt Headedness, Other positive:Chest Pain Gastrointestinal: No: Nausea, Vomiting, Abdominal Pain, Diarrhea, Constipation, Melena, Hematochezia, Other Genitourinary: No Dysuria, No Frequency, No Incontinence, No Hematuria, No Retention, No Other Musculoskeletal: neck pain; No: other, shoulder pain, arm pain, back pain, hand pain, leg pain, foot pain Skin: No: Rash, Lesions, Jaundice, Bruising, Other Neurological: Other ( headache.); No: Weakness, Numbness, Incoordination, Change in speech, Confusion, Seizures positive: Dizziness, Vital Signs Vital Signs Date Time Temp Pulse Resp B/P (MAP) Pulse Ox O2 Delivery O2 Flow Rate FiO2 01/09/25 13:00 98.4 62 15 140/93 (109) 99 98.4 01/08/25 22:05 Room Air* 0 21 Physical Exam General appearance: Patient is well-developed, well-nourished, in no acute distress. HEENT: Exam shows: Normocephalic, atraumatic, PERRLA, EOMI Neck: Supple, no bruits Chest: Equal chest excursion bilaterally. Breath sounds normal-no rales or wheezes. Heart: Rhythm: Regular rate; no murmur or gallop Abdomen: Exam shows: Soft, nontender, nondistended Musculoskeletal: No clubbing, no cyanosis, no lower extremity edema Dermatology: Skin warm, moist. Neurological: Exam shows: Alert and oriented x4, normal speech Available prior records, labs, EKG, rhythm strips reviewed and interpreted Labs/Diagnostic Data Labs Test 01/09/25 15:16 01/09/25 06:28 01/08/25 13:06 01/08/25 12:41 Range/Units White Blood Count 7.6 4.4-10.8 10^3/uL Red Blood Count 5.25 4.5-5.90 10^6/uL Hemoglobin 15.4 13.5-17.5 g/dL Hematocrit 44.2 41.0-53.0 % Mean Corpuscular Volume 84.2 80.0-100.0 fL Mean Corpuscular Hemoglobin 29.4 28.0-32.0 pg Mean Corpuscular Hemoglobin Concent 34.9 32.0-36.0 g/dL Red Cell Distribution Width 13.8 11.8-14.3 % Platelet Count 274 140-450 10^3/uL Mean Platelet Volume 8.5 6.9-10.8 fL Neutrophils (%) (Auto) 49.4 37.0-80.0 % Lymphocytes (%) (Auto) 33.9 10.0-50.0 % Monocytes (%) (Auto) 6.9 0.0-12.0 % Eosinophils (%) (Auto) 8.9 H 0.0-7.0 % Basophils (%) (Auto) 0.9 0.0-2.0 % Neutrophils # (Auto) 3.8 1.6-8.6 10 ^3/uL Lymphocytes # (Auto) 2.6 0.4-5.4 10 ^3/uL Monocytes # (Auto) 0.5 0-1.3 10 ^3/uL Eosinophils # (Auto) 0.7 0-0.8 10 ^3/uL Basophils # (Auto) 0.1 0-0.2 10 ^3/uL Nucleated Red Blood Cells 0.1 % Sodium Level 138 136-145 mmol/L Potassium Level 3.8 3.5-5.1 mmol/L Chloride Level 103 98-107 mmol/L Carbon Dioxide Level 26 20-31 mmol/L Anion Gap 9 5-15 Blood Urea Nitrogen 15 9-23 mg/dL Creatinine 0.96 0.700-1.30 mg/dL Glomerular Filtration Rate Calc 92 >90 mL/min BUN/Creatinine Ratio 15.6 10.0-20.0 Serum Glucose 110 H 74-106 mg/dL Calcium Level 10.0 8.7-10.4 mg/dL Total Bilirubin 1.3 H 0.2-1.0 mg/dL Aspartate Amino Transferase (AST) 12 L 13-40 U/L Alanine Aminotransferase (ALT) 24 7-40 U/L Alkaline Phosphatase 79 46-116 U/L Total Protein 7.9 5.7-8.2 g/dL Albumin 5.1 H 3.2-4.8 g/dL Triglycerides Level 181 H < 150 mg/dL Cholesterol Level 207 H < 200 mg/dL LDL Cholesterol 152 H < 100 mg/dL HDL Cholesterol 32 L 40-59 mg/dL Thyroid Stimulating Hormone (TSH) 2.44 0.55-4.78 uIU/mL Urine Color Light-yellow Yellow Urine Clarity Clear Clear Urine pH 6.0 5.0-9.0 Urine Specific [place] 1.022 1.001-1.035 Urine Protein Negative Negative Urine Ketones Negative Negative Urine Blood Negative Negative /uL Urine Nitrite Negative Negative Urine Bilirubin Negative Negative Urine Urobilinogen Normal Negative mg/dL Urine Leukocyte Esterase Negative Negative /uL Urine RBC 1 0 - 4 /hpf Urine Microscopic WBC 1 0-5 /HPF Urine Squamous Epithelial Cells None seen <5 /hpf Urine Bacteria None seen None Seen /hpf Urine Glucose Normal Normal mg/dL B-Type Natriuretic Peptide 11.76 0-100 pg/mL Test 01/08/25 12:26 Range/Units POC Glucose 107 H 70-106 mg/dl Assessment * Dizziness - CTA negative. Neurology consult. Follow up echo. Continue telemetry monitoring. Outpatient event monitoring recommended. * Chest Pain - atypical. Troponin x1 negative, follow up trend. Check echo. On Lopid. * HTN - continue current regimen, titrate as tolerated. * HLD -on gemfibrozil * Prediabetes - management per primary team. Case Discussed with Dr Cook. Continue telemetry monitoring. Check echo. Follow up neurology recs. Outpatient follow up for ischemic workup. Critical care, time spent: 36 minutes This medical document was created using an electronic medical record system with voice recognition software and computerized dictation system. Although this d ocument has been carefully reviewed, there might still be some phonetic and typographical errors. Occasional wrong-word or ``sound-alike substitutions may have occurred due to the inherent limitations of voice recognition software. These areas are purely typographical due to imperfections of the software programs and do not reflect any compromise in the patient's medical care. Please read the chart carefully and recognize, using context, where these substitutions have occurred. Thank you for allowing me to participate in the management of this patient. The treatment plan was discussed with and agreed upon by patient/family in cluding requesting consultants and ordering of imaging/procedures. Plan discussed with: Patient, Spouse NYHA Physical activity limitations: NA Date of Service: Jan 09, 2025 Billing Provider: HODA RAMIRES Cardiology Common Codes: [id number] INP/OBS CARE (High), 71638-[id number] CARE 30-74 MIN HODA RAMIRES Jan 09, 2025 15:41
[2025-01-09 18:02] LABS: % Iron Saturation 32.7 % (20-55)
[2025-01-09] MEDS: PRAMIPEXOLE DIHYDROCHLORIDE MO 0.25 MG TAB PO SCH (22:42)
--- NOTE | 2025-01-09 23:46 | DVHINCON2 ---
Date Seen: Jan 09, 2025 Referring Physician Nelson Kay Reason for Consultation Dizziness, Chest Pain History of Present Illness This is a 51-year-old male with PMH of prediabetes, HLD, HTN presented to the ED with c/o dizziness and chest pain. Patient states symptoms started with dizziness, has been going on for the last week. Patient has also been having some visual changes as well with the dizziness. Denies any other neurological deficits no weakness no facial or extremity numbness. Patient does use Q-tips often and notes that he did pull his left inner ear around the same time the dizziness started. Patient states that symptoms or syncope but he also has episodes of chest pain noted to be left-sided, nonradiating, nonexertional, was worse when he was laying flat. Last episode described as sudden when he was laying flat in his bed though when he got up and started walking it started to subside. Denies previous cardiac workup. Upon evaluation in the ER CT head, carotid ultrasound negative. Troponins negative. Cholesterol 207, LDL 152 HDL 32. Denies illicit drug use or tobacco use. States he quit drinking approximately 3 weeks ago. EKG reviewed and shows normal sinus rhythm at 70 beats per minute, no significant ST and T-wave abnormality. Patient was admitted to the hospital. I am asked to consult on this patient. Past Medical History HTN, HLD, prediabetes Past Surgical History Denies previous cardiac surgeries Family History: Patient reports no known family medical history. Allergies: Coded Allergies: NO KNOWN ALLERGIES (Unverified , 01/08/25) Home Meds Reported Medications Lisinopril & Hydrochlorothiazi (Zestoretic) 1 Tab Tab, 1 TAB PO DAILY, #30 TAB 5 Refills 01/08/25 Potassium Chloride (POTASSIUM CHLORIDE CR) 10 Meq Tb, 1 TAB PO DAILY, #30 TAB 5 Refills 01/08/25 Gemfibrozil (Gemfibrozil) 600 Mg Tab, 1 TAB PO BID 01/08/25 Current Medications Current Medications Medications (Trade) Dose Ordered Sig/Nahed Route PRN Reason Start Time Stop Time Status Last Admin Gemfibrozil (Lopid Tablet) 600 mg DAILY PO 01/09/25 10:00 01/09/25 09:01 Enoxaparin Sodium (Lovenox) 40 mg DAILY SC 01/09/25 10:00 01/09/25 09:04 Lisinopril (Zestril Tablet) 20 mg DAILY PO 01/09/25 10:00 01/09/25 09:02 Famotidine (Pepcid Tablet) 20 mg DAILY PO 01/09/25 10:00 01/09/25 09:01 Lorazepam (Ativan Inj) 1 mg ONCE PRN IV MRI 01/09/25 17:30 01/12/25 17:29 Pramipexole Dihydrochloride (Mirapex Tablet) 0.25 mg HS PO 01/09/25 22:00 Review of Systems Constitutional: No: Fever, Chills, Sweats, Weakness, Malaise, Other Eyes: No: Pain, Vision change, Conjunctivae inflammation, Eyelid inflammation, Other, Redness ENT: No: Ear pain, Ear discharge, Nose pain, Nose discharge, Nose congestion, Mouth pain, Mouth swelling, Throat pain, Throat swelling, Other Respiratory: No: Cough, Dry, Shortness of breath, SOB with exertion, Wheezing, Hemoptysis, Pleuritic Pain, Sputum, Wheezing, Other Cardiovascular: ; No: Palpitations, Orthopnea, Paroxysmal Noc. Dyspnea, Edema, Lt Headedness, Other positive:Chest Pain Gastrointestinal: No: Nausea, Vomiting, Abdominal Pain, Diarrhea, Constipation, Melena, Hematochezia, Other Genitourinary: No Dysuria, No Frequency, No Incontinence, No Hematuria, No Retention, No Other Musculoskeletal: neck pain; No: other, shoulder pain, arm pain, back pain, hand pain, leg pain, foot pain Skin: No: Rash, Lesions, Jaundice, Bruising, Other Neurological: Other ( headache.); No: Weakness, Numbness, Incoordination, Change in speech, Confusion, Seizures positive: Dizziness, Vital Signs Vital Signs Date Time Temp Pulse Resp B/P (MAP) Pulse Ox O2 Delivery O2 Flow Rate FiO2 01/09/25 21:29 98.2 61 18 139/87 95 0.0 21 98.2 01/09/25 20:00 Room Air* Physical Exam GENERAL: Awake, alert, oriented. LUNGS: Clear. CARDIOVASCULAR: Heart sounds are good. ABDOMEN: Soft. Labs/Diagnostic Data Labs Test 01/09/25 15:16 01/09/25 06:28 01/08/25 13:06 01/08/25 12:41 Range/Units Troponin I High Sensitivity 19 </=54 ng/L White Blood Count 7.6 4.4-10.8 10^3/uL Red Blood Count 5.25 4.5-5.90 10^6/uL Hemoglobin 15.4 13.5-17.5 g/dL Hematocrit 44.2 41.0-53.0 % Mean Corpuscular Volume 84.2 80.0-100.0 fL Mean Corpuscular Hemoglobin 29.4 28.0-32.0 pg Mean Corpuscular Hemoglobin Concent 34.9 32.0-36.0 g/dL Red Cell Distribution Width 13.8 11.8-14.3 % Platelet Count 274 140-450 10^3/uL Mean Platelet Volume 8.5 6.9-10.8 fL Neutrophils (%) (Auto) 49.4 37.0-80.0 % Lymphocytes (%) (Auto) 33.9 10.0-50.0 % Monocytes (%) (Auto) 6.9 0.0-12.0 % Eosinophils (%) (Auto) 8.9 H 0.0-7.0 % Basophils (%) (Auto) 0.9 0.0-2.0 % Neutrophils # (Auto) 3.8 1.6-8.6 10 ^3/uL Lymphocytes # (Auto) 2.6 0.4-5.4 10 ^3/uL Monocytes # (Auto) 0.5 0-1.3 10 ^3/uL Eosinophils # (Auto) 0.7 0-0.8 10 ^3/uL Basophils # (Auto) 0.1 0-0.2 10 ^3/uL Nucleated Red Blood Cells 0.1 % Sodium Level 138 136-145 mmol/L Potassium Level 3.8 3.5-5.1 mmol/L Chloride Level 103 98-107 mmol/L Carbon Dioxide Level 26 20-31 mmol/L Anion Gap 9 5-15 Blood Urea Nitrogen 15 9-23 mg/dL Creatinine 0.96 0.700-1.30 mg/dL Glomerular Filtration Rate Calc 92 >90 mL/min BUN/Creatinine Ratio 15.6 10.0-20.0 Serum Glucose 110 H 74-106 mg/dL Calcium Level 10.0 8.7-10.4 mg/dL Iron Level 135 65-175 ug/dL Total Iron Binding Capacity 413 250-425 ug/dL Percent Iron Saturation 32.7 20-55 % Ferritin 113.8 22-322 ng/mL Total Bilirubin 1.3 H 0.2-1.0 mg/dL Aspartate Amino Transferase (AST) 12 L 13-40 U/L Alanine Aminotransferase (ALT) 24 7-40 U/L Alkaline Phosphatase 79 46-116 U/L Total Protein 7.9 5.7-8.2 g/dL Albumin 5.1 H 3.2-4.8 g/dL Triglycerides Level 181 H < 150 mg/dL Cholesterol Level 207 H < 200 mg/dL LDL Cholesterol 152 H < 100 mg/dL HDL Cholesterol 32 L 40-59 mg/dL Thyroid Stimulating Hormone (TSH) 2.44 0.55-4.78 uIU/mL Urine Color Light-yellow Yellow Urine Clarity Clear Clear Urine pH 6.0 5.0-9.0 Urine Specific [place] 1.022 1.001-1.035 Urine Protein Negative Negative Urine Ketones Negative Negative Urine Blood Negative Negative /uL Urine Nitrite Negative Negative Urine Bilirubin Negative Negative Urine Urobilinogen Normal Negative mg/dL Urine Leukocyte Esterase Negative Negative /uL Urine RBC 1 0 - 4 /hpf Urine Microscopic WBC 1 0-5 /HPF Urine Squamous Epithelial Cells None seen <5 /hpf Urine Bacteria None seen None Seen /hpf Urine Glucose Normal Normal mg/dL B-Type Natriuretic Peptide 11.76 0-100 pg/mL Test 01/08/25 12:26 Range/Units POC Glucose 107 H 70-106 mg/dl Assessment Dizziness. Chest pain - atypical. HTN HLD. Pre DM. Plan/Recommendation I agree with your ongoing assessment and care of plan. Patient has been seen by Steve Gonzalez NP on my behalf, him and I discussed the plan with the patient. Telemetry reviewed. Echocardiogram. Trend cardiac enzymes. Neurology consult. Morphine and [place] for pain management. DVT prophylactics. Lopid. Lisinopril. Outpatient event monitoring recommended. Additional plan as per the hospital course. Plan discussed with: Patient NYHA Physical activity limitations: NA Date of Service: Jan 09, 2025 Billing Provider: LISA MURILLO MD Cardiology Common Codes: [id number] INP/OBS CARE (High), [id number] CARE 30-74 MIN LISA MURILLO MD Jan 09, 2025 22:24
[2025-01-10 01:00] VITALS: BP 128/73; PULSE 60; RESP 18; TEMP 97.6; O2SAT 100
--- NOTE | 2025-01-10 01:51 | DVHSR ---
APPROVED REPORT EXAM: Two-dimensional and M-mode echocardiogram with Doppler and color Doppler. Blood Pressure: 110/76 mmHg INDICATION hypertnesion rule out structural abnormalities RISK FACTORS Obesity: Height: 5'7, Weight: 221 DIMENSIONS LVDd5.2 (3.8-5.7cm)LA (2D)3.7 (1.9-4.0cm)Aortic Root3.7 (2.0-3.7cm) LVDs3.3 (2.5-4.0cm)LA (MM) (1.9-4.0cm)Aortic Cusp Exc1.8 (1.5-2.0cm) EF (%) 60.0 (55-70%)Rt. Atrium2.1 (1.9-4.0cm)Asc. Aorta3.4 cm IVSd0.9 (0.7-1.1cm)RV (D)4.4 (1.8-2.4cm) PWd0.8 (0.7-1.1cm) Mitral Valve MitralMitral Stenosis E wave0.65m/sMV Mean GR.mmHg A wave0.64m/sMV Peak GR.81mmHg E/A ratio1.02D MVAcm2 DECEL [id number] 1/2 [place] Aortic Valve Aortic ValveAortic Stenosis V11.13m/Linus Mean GR.4mmHg V21.28m/Linus Peak GR.7mmHg LVOT Diameter2.2 (1.8-2.4cm)Doppler AVA3.35cm2 Pulmonic Valve V20.82m/s Conclusion NORMAL LV EF OF 65% NORMAL VALVES NORMAL RV FUNCTION NO EFFUSION
[2025-01-10 05:00] VITALS: BP 126/70; PULSE 55; RESP 17; TEMP 97.7; O2SAT 97
[2025-01-10 07:30] VITALS: PULSE 56; RESP 16; O2SAT 96
[2025-01-10 07:31] LABS: Basophils # (auto) 0.1 10 ^3/uL (0-0.2); Basophils % (auto) 0.8 % (0.0-2.0); Eosinophils # (auto) 0.5 10 ^3/uL (0-0.8); Eosinophils % (auto) 7.9 % (0.0-7.0); Hematocrit 43.4 % (41.0-53.0); Hemoglobin 14.8 g/dL (13.5-17.5); Lymphocytes # (auto) 2.2 10 ^3/uL (0.4-5.4); Lymphocytes % (auto) 31.5 % (10.0-50.0); Mean Corpuscular Hemoglobin 28.9 pg (28.0-32.0); Mean Corpuscular Hgb Conc. 34.2 g/dL (32.0-36.0); Mean Corpuscular Volume 84.7 fL (80.0-100.0); Monocytes # (auto) 0.5 10 ^3/uL (0-1.3); Monocytes % (auto) 6.6 % (0.0-12.0); Neutrophils # (auto) 3.7 10 ^3/uL (1.6-8.6); Neutrophils % (auto) 53.2 % (37.0-80.0); Nucleated Red Blood Cells % 0.1 %; Platelet Count (auto) 256 10^3/uL (140-450); Red Blood Cells 5.13 10^6/uL (4.5-5.90); Red Cell Distribution Width 13.8 % (11.8-14.3); White Blood Cell 6.9 10^3/uL (4.4-10.8)
[2025-01-10 07:47] LABS: Alanine Aminotransferase 21 U/L (7-40); Albumin 4.6 g/dL (3.2-4.8); Alkaline Phosphatase 75 U/L (46-116); Anion Gap 8 (5-15); BUN/Creatinine Ratio 13.9 (10.0-20.0); Blood Urea Nitrogen 15 mg/dL (9-23); Calcium 9.9 mg/dL (8.7-10.4); Carbon Dioxide 26 mmol/L (20-31); Chloride 104 mmol/L (98-107); Potassium 4.6 mmol/L (3.5-5.1); Sodium 138 mmol/L (136-145); Total Protein 7.3 g/dL (5.7-8.2)
[2025-01-10 07:49] LABS: Aspartate Aminotransferase 11 U/L (13-40); Glucose 108 mg/dL (74-106)
--- NOTE | 2025-01-10 08:08 | DVHPN2 ---
Reviewed: Care Plan, H&P, Labs, Medications, Previous Orders, Radiology Changes from previous H/P or p: No Changes Objective Vitals Vital Signs Date Time Temp Pulse Resp B/P (MAP) Pulse Ox O2 Delivery O2 Flow Rate FiO2 01/10/25 05:00 97.7 55 17 126/70 (88) 97 97.7 01/09/25 22:33 Room Air* 0 21 Intake/Output Intake and Output 01/10/25 07:00 Intake Total 1540 ml Balance 1540 ml Intake Oral 1540 ml # Voids 4 # Bowel Movements 3 Medications Current Medications Medications Dose Ordered Sig/Nahed Route Start Time Stop Time Status Last Admin Dose Admin Hydralazine HCl 10 mg Q6HP PRN IV 01/08/25 20:00 Gemfibrozil 600 mg DAILY PO 01/09/25 10:00 01/09/25 09:01 600 MG Sodium Chloride 10 ml Q8HR IV 01/08/25 22:00 01/10/25 05:26 10 ML Docusate Sodium 100 mg BIDPRN PRN PO 01/08/25 20:30 Acetaminophen 650 mg Q6HP PRN PO 01/08/25 20:30 Acetaminophen/ Hydrocodone Bitart 1 tab Q4HP PRN PO 01/08/25 20:30 Hydromorphone HCl 0.5 mg Q4HP PRN IV 01/08/25 20:30 Ondansetron HCl 4 mg Q4HP PRN IV 01/08/25 20:30 Enoxaparin Sodium 40 mg DAILY SC 01/09/25 10:00 01/09/25 09:04 40 MG Nitroglycerin 0.4 mg Q5MINP PRN SL 01/08/25 20:30 Morphine Sulfate 2 mg Q30M PRN IV 01/08/25 20:30 Lisinopril 20 mg DAILY PO 01/09/25 10:00 01/09/25 09:02 20 MG Famotidine 20 mg DAILY PO 01/09/25 10:00 01/09/25 09:01 20 MG Lorazepam 1 mg ONCE PRN IV 01/09/25 17:30 01/12/25 17:29 Pramipexole Dihydrochloride 0.25 mg HS PO 01/09/25 22:00 Laboratory Results Laboratory Tests 01/10/25 06:23 Chemistry Test 01/10/25 06:23 Albumin 4.6 g/dL (3.2-4.8) Calcium Level 9.9 mg/dL (8.7-10.4) Total Protein 7.3 g/dL (5.7-8.2) LFT Test 01/10/25 06:23 Alanine Aminotransferase (ALT) 21 U/L (7-40) Alkaline Phosphatase 75 U/L (46-116) Aspartate Amino Transferase (AST) 11 U/L (13-40) L Total Bilirubin 1.0 mg/dL (0.2-1.0) Urinalysis Test 01/08/25 13:06 Urine Color Light-yellow (Yellow) Urine Clarity Clear (Clear) Urine pH 6.0 (5.0-9.0) Urine Specific [place] 1.022 (1.001-1.035) Urine Protein Negative (Negative) Urine Ketones Negative (Negative) Urine Blood Negative /uL (Negative) Urine Nitrite Negative (Negative) Urine Bilirubin Negative (Negative) Urine Urobilinogen Normal mg/dL (Negative) Urine Leukocyte Esterase Negative /uL (Negative) Urine RBC 1 /hpf (0 - 4) Urine Microscopic WBC 1 /HPF (0-5) Urine Squamous Epithelial Cells None seen /hpf (<5) Urine Bacteria None seen /hpf (None Seen) Urine Glucose Normal mg/dL (Normal) Labs and/or images reviewed: Labs reviewed by me, Image(s) reviewed by me Assessment/Plan Assessment/Plan Dizziness and chest pain one month: CT head negative carotid ultrasound negative echocardiogram 65 percent ejection fraction and normal, cardiology consult for Dr. Junior Cook appreciated, advised outpatient ischemic workup Neurology consult for Dr. Bull appreciated, placed on Mirapex History of heavy alcohol use quit three weeks ago Hypotension Hypercholesterolemia We will discharge patient today on Mirapex Antivert thiamine folic acid multivitamin Time spent 35 minutes Plan discussed with: Patient My Orders Orders - KARLY DUTTA MD Procedure Category Date Status Time Carotid Duplx W Color US 01/09/25 Resulted DOP 12:54 * Cardiology Consult CONS 01/09/25 Transmitted 12:54 * Neurology Consult CONS 01/09/25 Transmitted 13:03 Drug Screen LAB 01/09/25 Logged 13:08 Date of Service: Jan 10, 2025 Billing Provider: KARLY DUTTA MD Common Visit Codes: [id number] INP/OBS CARE(HIGH) KARLY DUTTA MD Jan 10, 2025 08:07
--- NOTE | 2025-01-10 08:11 | DVHDS2 ---
Discharge Summary Date of Admission Jan 08, 2025 at 20:22 Date of Discharge: Jan 10, 2025 Admitting Diagnosis Dizziness and chest pain three weeks Wounds: None Labs/Diagnostic Data: Laboratory Results Test 01/10/25 06:23 01/09/25 15:16 01/09/25 06:28 01/08/25 13:06 White Blood Count 6.9 10^3/uL (4.4-10.8) Red Blood Count 5.13 10^6/uL (4.5-5.90) Hemoglobin 14.8 g/dL (13.5-17.5) Hematocrit 43.4 % (41.0-53.0) Mean Corpuscular Volume 84.7 fL (80.0-100.0) Mean Corpuscular Hemoglobin 28.9 pg (28.0-32.0) Mean Corpuscular Hemoglobin Concent 34.2 g/dL (32.0-36.0) Red Cell Distribution Width 13.8 % (11.8-14.3) Platelet Count 256 10^3/uL (140-450) Mean Platelet Volume 8.6 fL (6.9-10.8) Neutrophils (%) (Auto) 53.2 % (37.0-80.0) Lymphocytes (%) (Auto) 31.5 % (10.0-50.0) Monocytes (%) (Auto) 6.6 % (0.0-12.0) Eosinophils (%) (Auto) 7.9 % (0.0-7.0) Basophils (%) (Auto) 0.8 % (0.0-2.0) Neutrophils # (Auto) 3.7 10 ^3/uL (1.6-8.6) Lymphocytes # (Auto) 2.2 10 ^3/uL (0.4-5.4) Monocytes # (Auto) 0.5 10 ^3/uL (0-1.3) Eosinophils # (Auto) 0.5 10 ^3/uL (0-0.8) Basophils # (Auto) 0.1 10 ^3/uL (0-0.2) Nucleated Red Blood Cells 0.1 % Sodium Level 138 mmol/L (136-145) Potassium Level 4.6 mmol/L (3.5-5.1) Chloride Level 104 mmol/L (98-107) Carbon Dioxide Level 26 mmol/L (20-31) Anion Gap 8 (5-15) Blood Urea Nitrogen 15 mg/dL (9-23) Creatinine 1.08 mg/dL (0.700-1.30) Glomerular Filtration Rate Calc 80 mL/min (>90) BUN/Creatinine Ratio 13.9 (10.0-20.0) Serum Glucose 108 mg/dL (74-106) Calcium Level 9.9 mg/dL (8.7-10.4) Total Bilirubin 1.0 mg/dL (0.2-1.0) Aspartate Amino Transferase (AST) 11 U/L (13-40) Alanine Aminotransferase (ALT) 21 U/L (7-40) Alkaline Phosphatase 75 U/L (46-116) Total Protein 7.3 g/dL (5.7-8.2) Albumin 4.6 g/dL (3.2-4.8) Troponin I High Sensitivity 19 ng/L (</=54) Iron Level 135 ug/dL (65-175) Total Iron Binding Capacity 413 ug/dL (250-425) Percent Iron Saturation 32.7 % (20-55) Ferritin 113.8 ng/mL (22-322) Triglycerides Level 181 mg/dL (< 150) Cholesterol Level 207 mg/dL (< 200) LDL Cholesterol 152 mg/dL (< 100) HDL Cholesterol 32 mg/dL (40-59) Thyroid Stimulating Hormone (TSH) 2.44 uIU/mL (0.55-4.78) Urine Color Light-yellow (Yellow) Urine Clarity Clear (Clear) Urine pH 6.0 (5.0-9.0) Urine Specific [place] 1.022 (1.001-1.035) Urine Protein Negative (Negative) Urine Ketones Negative (Negative) Urine Blood Negative /uL (Negative) Urine Nitrite Negative (Negative) Urine Bilirubin Negative (Negative) Urine Urobilinogen Normal mg/dL (Negative) Urine Leukocyte Esterase Negative /uL (Negative) Urine RBC 1 /hpf (0 - 4) Urine Microscopic WBC 1 /HPF (0-5) Urine Squamous Epithelial Cells None seen /hpf (<5) Urine Bacteria None seen /hpf (None Seen) Urine Glucose Normal mg/dL (Normal) Test 01/08/25 12:41 01/08/25 12:26 B-Type Natriuretic Peptide 11.76 pg/mL (0-100) POC Glucose 107 mg/dl (70-106) Other Laboratory Tests 01/10/25 06:23 Brief Hx & Hospital Course: 59-year-old male with a history of alcohol abuse quit three weeks ago hypercholesterolemia hypotension came in complaining of dizziness and chest pain for the last three weeks. Troponin negative. CT head negative carotid ultrasound negative echocardiogram 65 percent ejection fraction and normal cardiology consult by Dr. Cook advised outpatient cardiac workup neurology consult by Dr. Bull placed on Mirapex for possible restless leg syndrome. Patient feels better stable vital signs being discharged home. Prescription for thiamine folic acid multivitamin Mirapex and Antivert transmitted to pharmacy. He will follow up with Dr. Cook for ischemic cardiac workup and with his primary Dr Consults/Reason for consult Architectural Superintendent Dr. Cook Neurology Dr. Bull Operations or Procedures Echocardiogram Condition at Discharge: Fair Final Diagnosis/Problems List Dizziness and chest pain one month: CT head negative carotid ultrasound negative echocardiogram 65 percent ejection fraction and normal, cardiology consult for Dr. Junior Cook appreciated, advised outpatient ischemic workup Neurology consult for Dr. Bull appreciated, placed on Mirapex History of heavy alcohol use quit three weeks ago Hypotension Hypercholesterolemia Discharge Disposition: Home Discharge Instruct/Medications Diet: Cardiac 2g Na,low cholest Activity: Light activity Follow Up/Referral: Use medications as prescribed Follow up with the primary Dr Follow up with the supervisor toy assembly Dr. Junior Cook in two weeks for outpatient ischemic cardiac workup Medications: Thiamine Folic acid Multivitamin Mirapex Antivert Transmitted to pharmacy 39 (Time taken for discharge summary 39 minutes) Discharge Statement: "Patient was advised to return to the ER or call 911 if any headaches, dizziness, shortness of breath, chest pain, abdominal pain, bleeding, fevers, or worsening of medical condition. Patient was counseled about treatment plan, medications, possible side effects, patientverbalized understanding. All questions were answered to the best of my ability. This discharge took greater then 30 minutes in planning, reviewing documentation, counseling the patient, and discussing with other team members." ASSESSMENT ASSESSMENT Hospital Course Improved Assessment Dizziness and chest pain one month: CT head negative carotid ultrasound negative echocardiogram 65 percent ejection fraction and normal, cardiology consult for Dr. Junior Cook appreciated, advised outpatient ischemic workup Neurology consult for Dr. Bull appreciated, placed on Mirapex History of heavy alcohol use quit three weeks ago Hypotension Hypercholesterolemia Date of Service: Jan 10, 2025 Billing Provider: KARLY DUTTA MD Common Visit Codes: [id number] DISCH DAY >30min KARLY DUTTA MD Jan 10, 2025 08:11
[2025-01-10] MEDS ORDERED: PRAM0.37 PO (08:13)
[2025-01-10] MEDS ORDERED: THIA100T13 PO (08:13)
[2025-01-10] MEDS ORDERED: MULT1TAB95 PO (08:13)
[2025-01-10] MEDS ORDERED: FOLI-119 PO (08:13)
[2025-01-10] MEDS ORDERED: MECL25CH85 PO (08:13)
[2025-01-10] MEDS: LORazepam 2MG/ML-1ML VIAL IV PRN (08:37)
[2025-01-10 09:00] VITALS: BP_SYST 0; BP_SYST 121; BP_DIAS 79; PULSE 56; RESP 16; TEMP 97.6; O2SAT 96
[2025-01-10 09:13] LABS: Amphetamine Screen, Urine Neg (NEGATIVE); Barbiturate Scree,Urine Neg (NEGATIVE); Benzodiazephine Screen, Urine Neg (NEGATIVE); Cocaine Screen, Urine Neg (NEGATIVE); Opiate Scree,Urine Neg (NEGATIVE); Phencyclidine Screen, Urine Neg (NEGATIVE)
[2025-01-10 09:14] LABS: Cannabinoid Screen, Urine Neg (NEGATIVE)
[2025-01-10] MEDS: MECLIZINE HCL 25 MG TAB PO ONE (09:30)
--- NOTE | 2025-01-10 09:54 | DVH ---
EXAM: MRI BRAIN HEAD WO CONTRAST HISTORY: Dizziness COMPARISON: None TECHNIQUE: MRI was performed utilizing multiple appropriate imaging planes and pulse sequences. FINDINGS: SUPRATENTORIAL REGION: No evidence for acute ischemia or intracranial hemorrhage. Confluent hypoatte nuating foci are noted in the bilateral periventricular and deep white matter, which probably reflect chronic microvascular ischemic changes. POSTERIOR FOSSA: Unremarkable. BRAINSTEM: Unremarkable. SELLAR/SUPRASELLAR REGION: Unremarkable. VENTRICLES, CISTERNS, SULCI: Age-appropriate. ORBITS: Unremarkable. PARANASAL SINUSES: Unremarkable. MASTOID AIR CELLS: Unremarkable. VASCULATURE: Unremarkable. BONES/ SOFT TISSUES: Unremarkable. OTHER: None. IMPRESSION: 1. No acute intracranial process identified. 2. Scattered nonspecific FLAIR hyperintense foci in the bilateral cerebral white matter without restr icted diffusion typically reflect chronic microvascular ischemic changes. The differential diagnosis includes hypoxic/ischemic etiologies (atherosclerotic, hypertension, migraine), inflammatory/infecti ous etiologies (demyelination disorders) or other. Recommend clinical correlation and further evalua tion as clinically warranted.
[2025-01-10 11:24] VITALS: BP 121/74; TEMP 36.4
--- NOTE | 2025-01-10 19:01 | DVHPN2 ---
Progress Note - Dictate Date Seen: Jan 10, 2025 Medical Necessity Reason Pt with a Central, PICC or Fol: No Subjective Patient was seen and evaluated in follow up. Patient has no new complaints at this time. Echocardiogram shows an EF of 65%. Patient denies any cardiac symptoms. Patient is cardiac stable for discharge. Telemetry reviewed. vital signs Vital Sign Date Time Temp Pulse Resp B/P (MAP) Pulse Ox O2 Delivery O2 Flow Rate FiO2 01/10/25 11:24 36.4 01/10/25 10:16 121/74 01/10/25 09:00 56 16 96 01/10/25 07:30 Room Air* 0 21 Total Intake and Output 01/09/25 01/09/25 01/10/25 15:00 23:00 07:00 Intake Total 1240 ml 300 ml Balance 1240 ml 300 ml objective GENERAL: Awake, alert, oriented. LUNGS: Clear. CARDIOVASCULAR: Heart sounds are good. ABDOMEN: Soft. laboratory and microbiology Laboratory Tests 01/10/25 06:23 Test 01/10/25 06:23 Range/Units Serum Glucose 108 H 74-106 mg/dL Problem List Dizziness. Chest pain - atypical. HTN HLD. Pre DM. Assessment/Plan Continued all current supportive medical care. Morphine and [place] for pain management. DVT prophylactics. Lopid. Lisinopril. Additional plan as per the hospital course. Plan discussed with: Patient LISA MURILLO MD Jan 10, 2025 18:18
== END 2025-01-10 12:15 | disposition home or self-care (01) | DRG 305 ==
LOC: EDSEX 11:55 → EDBD 11:55 → ER 11:55 → OVERFLOW 20:22 → TELE-CENTR 21:07
PROVIDERS: ADMIT Family Medicine; ATTEND Family Medicine
DX: I16.0 Hypertensive urgency (principal); G47.00 Insomnia, unspecified; R07.89 Other chest pain; E66.9 Obesity, unspecified; I95.9 Hypotension, unspecified; G25.81 Restless legs syndrome; F10.10 Alcohol abuse, uncomplicated; Y90.9 Presence of alcohol in blood, level not specified; R73.03 Prediabetes; E61.1 Iron deficiency; I10 Essential (primary) hypertension; E78.00 Pure hypercholesterolemia, unspecified; Z79.1 Long term (current) use of non-steroidal anti-inflammatories (NSAID); Z79.899 Other long term (current) drug therapy; Z79.891 Long term (current) use of opiate analgesic; Z68.34 Body mass index [BMI] 34.0-34.9, adult; Z82.49 Family history of ischemic heart disease and other diseases of the circulatory system; Z81.8 Family history of other mental and behavioral disorders
CPT/HCPCS: 36415; 70450; 70551; 71045; 80048; 80053; 80061; 80307; 81001; 82728; 82962; 83540; 83550; 83880; 84443; 84484; 85025; 93005; 93306; 93886; G0378